=== PATIENT | male | born 1985 | race African-American/Black ===

== ENCOUNTER 2016-05-17 20:29 | Emergency (ER) | payer MEDICAID ==
[~2016-05-17] VITALS: Ht 180.3 cm; Wt 82.6 kg
[~2016-05-17 20:29] MED LIST: BENADRYL50 MG ORAL; IBUPROFEN600 MG ORAL; NORCO 5-325 TA1 EACH ORAL
[2016-05-17] MEDS ORDERED: NKM (20:36)
--- NOTE | 2016-05-17 20:51 | Emergency Room Report ---
History of Present Illness General Chief Complaint: Abdominal Pain Source: Patient Present Illness HPI 30 YO M with 1 day generalized stomach discomfort, nausea/vomiting non-bilious, watery diarrhea. Denies fever/chills, sick contacts, previous abd/pelvic surgery, sick contacts. Ate a burrito last night before bed. Didnt take OTC meds today. Allergies: Coded Allergies: PENICILLINS (Verified Allergy, Mild, rash, 12/25/12) Patient History Past Medical History: none Past Surgical History: none Pertinent Family History: none Social History: Denies: alcohol use, drug use, smoking Immunizations: UTD Reviewed Nursing Documentation: PMH: Agreed, PSxH: Agreed Nursing Documentation-PMH Past Medical History: No Stated History Review of Systems All Other Systems: negative except mentioned in HPI Physical Exam Vital Signs Date Time Temp Pulse Resp B/P Pulse Ox O2 Delivery O2 Flow Rate FiO2 05/17/16 20:31 97.2 62 18 151/87 98 Room Air Sp02 EP Interpretation: reviewed, normal General Appearance: normal inspection, well appearing, no apparent distress, alert, GCS 15, non-toxic Head: normocephalic, atraumatic Eyes: bilateral eye EOMI, bilateral eye PERRL ENT: normal ENT inspection, hearing grossly normal, normal voice Neck: normal inspection, full range of motion, supple, no bony tend Respiratory: normal inspection, lungs clear, normal breath sounds, no respiratory distress, no retraction, no wheezing Cardiovascular #1: regular rate, rhythm, no edema Gastrointestinal: normal inspection, normal bowel sounds, non tender, soft, no mass, no guarding, no hernia Genitourinary: no CVA tenderness Musculoskeletal: normal inspection, back normal, normal range of motion, Mena' s Sign negative Neurologic: normal inspection, alert, oriented x3, responsive, 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 VSS. Afebrile. No focal abd ttp. No peritoneal signs Labs: Mild leuks. Elevated ALT. No KERRI. Utox + for opiates (took norco yesterday) and MJ Likely viral gastroenteritis, possibly contributed by MJ abuse Improved after IV anti-emetic, IVF Tolerating PO Rx Pepcid, Zofran DC home Last Vital Signs Date Time Temp Pulse Resp B/P Pulse Ox O2 Delivery O2 Flow Rate FiO2 05/17/16 20:31 97.2 62 18 151/87 98 Room Air Status: improved Disposition: HOME, SELF-CARE Scripts Ondansetron Odt* (ZOFRAN ODT*) 4 Mg Tab.rapdis 4 MG ORAL Q6H Y for Nausea & Vomiting, #12 TAB 0 Refills Prov: ELBERT CHAPMAN M.D. 05/17/16 Famotidine (PEPCID) 20 Mg Tablet 20 MG ORAL BID for 7 Days, #14 TAB 0 Refills Prov: ELBERT CHAPMAN M.D. 05/17/16 ELBERT CHAPMAN M.D. May 17, 2016 20:51
[2016-05-17] MEDS ORDERED: Metoclopramide 10mg/2ml Inj IVP ONE (21:45)
[2016-05-17] MEDS ORDERED: Famotidine 20 MG/ 2ML VIAL IVP ONE (21:45)
[2016-05-17 22:09] LABS: BASOPHILS % (AUTO) 1.3 % (0.0-2.0); EOSINOPHILS % (AUTO) 0.3 % (0.0-3.0); LYMPHOCYTES % (AUTO) 11.1 % (20.0-45.0); MEAN CORPUSCULAR VOLUME 91 FL (80-99); MEAN PLATELET VOLUME 6.1 FL (6.5-10.1); MONOCYTES % (AUTO) 4.2 % (1.0-10.0); NEUTROPHILS % (AUTO) 83.1 % (45.0-75.0); PLATELET COUNT 261 K/UL (150-450); RED BLOOD COUNT 4.51 M/UL (4.70-6.10); RED CELL DISTRIBUTION WIDTH 11.1 % (11.6-14.8); WHITE BLOOD COUNT 11.6 K/UL (4.8-10.8)
[2016-05-17 22:13] LABS: APPEARANCE,URINE CLOUDY; KETONES,URINE NEGATIVE (NEGATIVE); LEUKOCYTE ESTERASE ,URINE 1+ (NEGATIVE); NITRITE,URINE NEGATIVE (NEGATIVE); PH,URINE 9 (4.5-8.0); PROTEIN,URINE NEGATIVE (NEGATIVE); UROBILINOGEN,URINE NORMAL MG/DL (0.0-1.0)
[2016-05-17 22:16] VITALS: BP 152/110
[2016-05-17 22:22] LABS: AMORPHOUS SEDIMENT,UR MANY /LPF; BACTERIA,URINE MODERATE /HPF; RBC,URINE 0-2 /HPF (0 - 0); WBC,URINE 0-2 /HPF (0 - 0)
[2016-05-17 22:28] LABS: ALANINE AMINOTRANSFERASE 48 U/L (3-41); ALBUMIN/GLOBULIN RATIO 1.3 (1.0-2.7); ANION GAP 16 (5-15); ASPARTATE AMINO TRANSFERASE 32 U/L (5-40); CALCIUM 9.5 mg/dL (8.6-10.2); CARBON DIOXIDE 26 mEQ/L (20-30); CHLORIDE 100 mEQ/L (98-107); CREATININE 0.8 mg/dL (0.7-1.2); GLOMERULAR FILTRATION RATE > 60 mL/min (>60); HEMOLYSIS 2; LIPASE 25 U/L (< 60); POTASSIUM 3.8 mEQ/L (3.4-4.9); SODIUM 142 mEQ/L (135-145); TOTAL PROTEIN 7.5 g/dL (6.6-8.7)
[2016-05-17] MEDS ORDERED: LORazepam Inj 2mg/ml 1ml IV ONE (22:45)
[2016-05-17 23:26] VITALS: BP 148/62
[2016-05-17] MEDS ORDERED: ZOFRAN ODT4 MG ORAL (23:45)
[2016-05-17] MEDS ORDERED: PEPCID20 MG ORAL (23:45)
[2016-05-17 23:54] VITALS: BP 148/62
== END 2016-05-17 23:55 | disposition home or self-care (01) ==
LOC: EMR 20:52
DX: R10.84 Generalized abdominal pain (principal); R11.2 Nausea with vomiting, unspecified; Z88.0 Allergy status to penicillin
CPT/HCPCS: 36415; 80053; 80300; 81003; 83690; 85025; 87086; 96360; 96372; 96374; 96375; 99284; J2405; J2765; S0028

== ENCOUNTER 2017-08-21 19:08 | Emergency (ER) | payer MEDICAID ==
[~2017-08-21] VITALS: Ht 180.3 cm; Wt 78.0 kg
[~2017-08-21 19:08] MED LIST changes: +NKM; +PEPCID20 MG ORAL; +ZOFRAN ODT4 MG ORAL
[2017-08-21 19:26] VITALS: BP 94/49
[2017-08-21] MEDS ORDERED: Dexamethasone 4mg/ml vial IM ONE (21:15)
[2017-08-21] MEDS ORDERED: ZITHROMAX250 MG ORAL (21:15)
[2017-08-21] MEDS ORDERED: IBUPROFEN600 MG ORAL (21:15)
[2017-08-21 22:08] VITALS: BP 104/67
--- NOTE | 2017-08-21 22:50 | Emergency Room Report ---
History of Present Illness General Chief Complaint: Flu Like Symptoms Source: Patient Present Illness HPI 31-year-old male presents ED complaining of sore throat and earache 2 days. States that his younger brother was sick initially. Denies any fevers chills. Denies runny nose or cough. Pain is throbbing, 8 out of 10, nonradiating. Notes difficulty with swallowing. Denies recent travel. No other aggravating relieving factors. Denies any other associated symptoms Allergies: Coded Allergies: PENICILLINS (Verified Allergy, Mild, rash, 12/25/12) Patient History Past Medical History: none Past Surgical History: none Pertinent Family History: none Social History: Denies: smoking, alcohol use, drug use Immunizations: UTD Reviewed Nursing Documentation: PMH: Agreed; PSxH: Agreed Nursing Documentation-PMH Past Medical History: No Stated History Review of Systems All Other Systems: negative except mentioned in HPI Physical Exam Vital Signs Date Time Temp Pulse Resp B/P (MAP) Pulse Ox O2 Delivery O2 Flow Rate FiO2 08/21/17 19:13 98.5 85 18 94/49 94 Room Air 98.4 08/21/17 19:26 94 Sp02 EP Interpretation: reviewed, normal General Appearance: no apparent distress, alert, GCS 15, non-toxic Head: normocephalic, atraumatic Eyes: bilateral eye normal inspection, bilateral eye PERRL ENT: hearing grossly normal, no angioedema, normal voice, TMs + canals normal, pharyngeal erythema, tonsillar exudate Neck: full range of motion, no meningismus, supple/symm/no masses Respiratory: normal inspection, speaking full sentences Cardiovascular #1: normal inspection Cardiovascular #2: 2+ carotid (R), 2+ carotid (L), 2+ radial (R), 2+ radial (L) , 2+ dorsalis pedis (R), 2+ dorsalis pedis (L) Gastrointestinal: normal inspection Rectal: deferred Genitourinary: no CVA tenderness Musculoskeletal: normal inspection Neurologic: alert, oriented x3, responsive, motor strength/tone normal, sensory intact, speech normal Psychiatric: judgement/insight normal, memory normal, mood/affect normal, no suicidal/homicidal ideation Reflexes: 3+ bicep (R), 3+ bicep (L), 3+ tricep (R), 3+ tricep (L), 3+ knee (R) , 3+ knee (L) Skin: normal color, no rash, warm/dry, well hydrated Lymphatic: no adenopathy Medical Decision Making Diagnostic Impression: Primary Impression: Pharyngitis Qualified Codes: J02.9 - Acute pharyngitis, unspecified ER Course Hospital Course 31-year-old male presents to ED complaining of sore throat + ear ache Differential diagnoses include: URI, pharyngitis, otitis media Clinical course Patient placed on stretcher. After initial history, physical exam reveals a male in no acute distress. Bilateral TM unremarkable. There is pharyngeal erythema w/ tonsillar exudates. Noted lymphadenopathy. Clinical findings consistent with pharyngitis. Given Decadron in ED. Discussed findings with patient. Recommend close follow- up with Diagnosis - pharyngitis Stable and discharged home with prescriptions for Motrin, azithromycin. Instructed to followup with PMD. return to ED if symptoms recur or worsen Last Vital Signs Date Time Temp Pulse Resp B/P (MAP) Pulse Ox O2 Delivery O2 Flow Rate FiO2 08/21/17 22:08 89 18 104/67 95 Room Air 08/21/17 19:26 94 08/21/17 19:26 98.4 98.4 Status: improved Disposition: HOME, SELF-CARE Condition: Stable Scripts Azithromycin* (ZITHROMAX*) 250 Mg Tablet 250 MG ORAL DAILY, #6 TAB 0 Refills Take two tables once daily for 1 day, then one tablet once daily for 4 days. Prov: Garcia Brewster MD 08/21/17 Ibuprofen* (MOTRIN*) 600 Mg Tablet 600 MG ORAL Q8H PRN for For Pain, #30 TAB 0 Refills Prov: Garcia Brewster MD 08/21/17 Patient Instructions: Pharyngitis, [id number] Garcia Brewster MD Aug 21, 2017 22:50
== END 2017-08-21 22:08 | disposition home or self-care (01) ==
LOC: EMR 20:54
DX: J02.9 Acute pharyngitis, unspecified (principal); Z88.0 Allergy status to penicillin
CPT/HCPCS: 96372; 99284; J1100

== ENCOUNTER 2018-08-18 20:29 | Emergency (ER) | payer MEDICAID ==
[~2018-08-18] VITALS: Ht 180.3 cm; Wt 77.6 kg
[~2018-08-18 20:29] MED LIST changes: +ZITHROMAX250 MG ORAL
[2018-08-18 20:57] VITALS: BP 120/65
[2018-08-18] MEDS: DiphenhydrAMINE 50mg/ml Inj IVP ONE (21:14)
[2018-08-18] MEDS: Morphine Sulfate 2mg/ml Inj(IV/IM USE ONLY) IVP ONE (21:15)
[2018-08-18] MEDS: Metoclopramide 10mg/2ml Inj IVP ONE (21:15)
[2018-08-18 21:21] LABS: APPEARANCE,URINE CLEAR; BILIRUBIN, URINE NEGATIVE (NEGATIVE); GLUCOSE, URINE (UA) NEGATIVE (NEGATIVE); KETONES,URINE 2+ (NEGATIVE); LEUKOCYTE ESTERASE ,URINE NEGATIVE (NEGATIVE); NITRITE,URINE NEGATIVE (NEGATIVE); PH,URINE 6 (4.5-8.0); PROTEIN,URINE NEGATIVE (NEGATIVE); UROBILINOGEN,URINE 8 MG/DL (0.0-1.0)
[2018-08-18 21:24] LABS: BASOPHILS % (AUTO) 2.8 % (0.0-2.0); EOSINOPHILS % (AUTO) 4.7 % (0.0-3.0); HEMATOCRIT 44.8 % (42.0-52.0); HEMOGLOBIN 15.5 G/DL (14.2-18.0); LYMPHOCYTES % (AUTO) 41.7 % (20.0-45.0); MEAN CORPUSCULAR VOLUME 86 FL (80-99); MONOCYTES % (AUTO) 7.3 % (1.0-10.0); NEUTROPHILS % (AUTO) 43.3 % (45.0-75.0); PLATELET COUNT 278 K/UL (150-450); RED BLOOD COUNT 5.23 M/UL (4.70-6.10); RED CELL DISTRIBUTION WIDTH 10.9 % (11.6-14.8); WHITE BLOOD COUNT 5.8 K/UL (4.8-10.8)
[2018-08-18 21:25] LABS: COLOR,URINE YELLOW
[2018-08-18 21:33] LABS: ANION GAP 11 mmol/L (5-15); BLOOD UREA NITROGEN 8 mg/dL (7-18); CALCIUM 9.9 MG/DL (8.5-10.1); CARBON DIOXIDE 31 MMOL/L (21-32); CHLORIDE 100 MMOL/L (98-107); POTASSIUM 3.5 MMOL/L (3.5-5.1); SODIUM 142 MMOL/L (136-145)
[2018-08-18 21:37] LABS: ALANINE AMINOTRANSFERASE 23 U/L (12-78); ALBUMIN/GLOBULIN RATIO 1.3 (1.0-2.7); ALKALINE PHOSPHATASE 99 U/L (46-116); ASPARTATE AMINO TRANSFERASE 16 U/L (15-37); BILIRUBIN,TOTAL 0.6 MG/DL (0.2-1.0); CREATINE KINASE 173 U/L (26-308)
--- NOTE | 2018-08-18 21:44 | Emergency Room Report ---
History of Present Illness General Chief Complaint: Abdominal Pain Source: Patient Present Illness HPI Presents with 3 days of nausea, vomiting and loose stools with abdominal cramping. The abdominal cramping is severe and diffuse. Is worse before he moves his bowels. He denies vomiting blood or coffee grounds. He felt feverish earlier today but has no documented temperature. He tried taking Pepto -Bismol earlier today but did not help. He rates the pain 15/10 nonradiating. He initially thought that he ate something bad. There is also some epigastric burning. Also slightly dizzy when he stands up. The patient denies headache, change in vision, sore throat, ear pain, cough, dysuria and joint pain. There are no rashes. He has no recent travel and cannot identify any foods that may have caused this. Allergies: Coded Allergies: PENICILLINS (Verified Allergy, Mild, rash, 12/25/12) Patient History Past Medical History: see triage record Social History: Reports: smoking, drug use - THC but stopped 2 months ago Social History Narrative At [employer] Reviewed Nursing Documentation: PMH: Agreed; PSxH: Agreed Nursing Documentation-PMH Past Medical History: No Stated History Review of Systems All Other Systems: negative except mentioned in HPI Physical Exam Vital Signs Date Time Temp Pulse Resp B/P (MAP) Pulse Ox O2 Delivery O2 Flow Rate FiO2 08/18/18 20:38 98.2 60 18 120/65 (83) 97 Room Air Sp02 EP Interpretation: reviewed, normal General Appearance: well appearing, no apparent distress, GCS 15 Head: normocephalic Eyes: bilateral eye normal inspection, bilateral eye PERRL, bilateral eye EOMI ENT: normal pharynx, moist mucus membranes Neck: supple Respiratory: lungs clear, normal breath sounds Cardiovascular #1: regular rate, rhythm Cardiovascular #2: 2+ radial (R) Gastrointestinal: normal inspection, normal bowel sounds, no mass, non- distended, no guarding, no rebound, tenderness - Diffuse, scaphoid Musculoskeletal: back normal, gait/station normal, normal range of motion Neurologic: alert, oriented x3, grossly normal Psychiatric: mood/affect normal Skin: normal inspection, warm/dry Medical Decision Making Diagnostic Impression: Primary Impression: Viral gastroenteritis ER Course Patient presents with nausea vomiting and loose stools with abdominal pain. Differential includes gastroenteritis, food poisoning, colitis, pancreatitis, diverticulitis, appendicitis amongst others. Based on exam surgical causes are less likely. The patient will be evaluated with labs. He will receive IV hydration, Pepcid, Reglan, Benadryl and a small dose of morphine. Initially the patient was reluctant to receive IV treatment. However I explained how this will give him great benefit in treating the problem and allow us to draw blood. Labs significant for normal WBC, H/H. Normal CMP and lipase. UA with ketones. Improved and tolerating oral intake. Declined additional pain medicine with me but then RN suggests repeat. Improved, soft abd, not surgical. Patient stable for outpatient observation and treatment. Laboratory Tests Test 08/18/18 21:00 White Blood Count 5.8 K/UL (4.8-10.8) Red Blood Count 5.23 M/UL (4.70-6.10) Hemoglobin 15.5 G/DL (14.2-18.0) Hematocrit 44.8 % (42.0-52.0) Mean Corpuscular Volume 86 FL (80-99) Mean Corpuscular Hemoglobin 29.7 PG (27.0-31.0) Mean Corpuscular Hemoglobin Concent 34.7 G/DL (32.0-36.0) Red Cell Distribution Width 10.9 % (11.6-14.8) L Platelet Count 278 K/UL (150-450) Mean Platelet Volume 5.3 FL (6.5-10.1) L Neutrophils (%) (Auto) 43.3 % (45.0-75.0) L Lymphocytes (%) (Auto) 41.7 % (20.0-45.0) Monocytes (%) (Auto) 7.3 % (1.0-10.0) Eosinophils (%) (Auto) 4.7 % (0.0-3.0) H Basophils (%) (Auto) 2.8 % (0.0-2.0) H Prothrombin Time 10.8 SEC (9.30-11.50) Prothrombin Time INR 1.0 (0.9-1.1) PTT 32 SEC (23-33) Urine Color Yellow Urine Appearance Clear Urine pH 6 (4.5-8.0) Urine Specific [place] 1.020 (1.005-1.035) Urine Protein Negative (NEGATIVE) Urine Glucose (UA) Negative (NEGATIVE) Urine Ketones 2+ (NEGATIVE) H Urine Blood 1+ (NEGATIVE) H Urine Nitrite Negative (NEGATIVE) Urine Bilirubin Negative (NEGATIVE) Urine Urobilinogen 8 MG/DL (0.0-1.0) H Urine Leukocyte Esterase Negative (NEGATIVE) Urine RBC 0-2 /HPF (0 - 0) H Urine WBC 0-2 /HPF (0 - 0) Urine Squamous Epithelial Cells None /LPF (NONE/OCC) Urine Bacteria Occasional /HPF (NONE) Urine Mucus Many /LPF (NONE/OCC) H Sodium Level 142 MMOL/L (136-145) Potassium Level 3.5 MMOL/L (3.5-5.1) Chloride Level 100 MMOL/L (98-107) Carbon Dioxide Level 31 MMOL/L (21-32) Anion Gap 11 mmol/L (5-15) Blood Urea Nitrogen 8 mg/dL (7-18) Creatinine 1.0 MG/DL (0.55-1.30) Estimate Glomerular Filtration Rate > 60 mL/min (>60) Glucose Level 89 MG/DL (74-106) Calcium Level 9.9 MG/DL (8.5-10.1) Total Bilirubin 0.6 MG/DL (0.2-1.0) Aspartate Amino Transferase (AST) 16 U/L (15-37) Alanine Aminotransferase (ALT) 23 U/L (12-78) Alkaline Phosphatase 99 U/L (46-116) Total Creatine Kinase 173 U/L (26-308) Total Protein 8.8 G/DL (6.4-8.2) H Albumin 5.0 G/DL (3.4-5.0) Globulin 3.8 g/dL Albumin/Globulin Ratio 1.3 (1.0-2.7) Lipase 100 U/L (73-393) Last Vital Signs Date Time Temp Pulse Resp B/P (MAP) Pulse Ox O2 Delivery O2 Flow Rate FiO2 08/18/18 23:38 98.6 78 18 125/67 98 Room Air Status: improved Disposition: HOME, SELF-CARE Condition: Improved Scripts Famotidine (PEPCID AC) 20 Mg Tablet 20 MG PO DAILY, #20 TAB Prov: Liam Mcneill MD 08/18/18 Ondansetron Odt* (ZOFRAN ODT*) 4 Mg Tab.rapdis 4 MG BC EVERY 8 HOURS PRN for Nausea & Vomiting, #6 TAB 0 Refills Prov: Liam Mcneill MD 08/18/18 Tramadol Hcl* (ULTRAM*) 50 Mg Tablet 50 MG ORAL Q6H PRN for For Pain, #6 TAB 0 Refills Prov: Liam Mcneill MD 08/18/18 Liam Mcneill MD Aug 18, 2018 21:44
[2018-08-18] MEDS: Morphine Sulfate 4mg/ml Inj (IV USE ONLY) IVP ONE (22:44)
[2018-08-18 23:00] VITALS: BP 120/65
[2018-08-18] MEDS ORDERED: PEPCID AC20 M2 PO (23:31)
[2018-08-18] MEDS ORDERED: ONDANSETRON ODT4 MG BC (23:31)
[2018-08-18] MEDS ORDERED: TRAMADOL HCL50 MG ORAL (23:31)
[2018-08-18 23:38] VITALS: BP 125/67
== END 2018-08-18 23:37 | disposition home or self-care (01) ==
LOC: EMR 20:55
DX: A08.4 Viral intestinal infection, unspecified (principal); Z88.0 Allergy status to penicillin
CPT/HCPCS: 36415; 80053; 81003; 82550; 83690; 85025; 85610; 85730; 96361; 96374; 96375; 96376; 99284; J1200; J2270; J2765; S0028